=== PATIENT | female | born 1950 | race Caucasian/White ===

== ENCOUNTER 2020-10-27 11:17 | Outpatient (CLI) | payer MEDICARE ==
--- NOTE | 2020-10-27 12:06 | RAD ---
XR Hip Lt 2-3 View INDICATION: Left hip pain COMPARISON: None FINDINGS: Bones: No acute osseous abnormality. Bone mineralization appears within normal limits. Hip joint: Mild degenerative arthrosis of the left hip. SI joints and symphysis pubis: Radiographically normal. Intrapelvic contents: There are mild vascular calcifications seen involving the visualized vasculatur e. Surrounding soft tissues: Radiographically normal. IMPRESSION: 1. No acute osseous abnormality.
--- NOTE | 2020-10-27 12:09 | RAD ---
XR Hip Rt 2-3 View INDICATION: Right hip pain COMPARISON: None FINDINGS: Bones: No acute osseous abnormality. Bone mineralization appears within normal limits. Hip joint: There is mild right hip osteoarthrosis. SI joints and symphysis pubis: Radiographically normal. Intrapelvic contents: Small phlebolith is seen within the lower right hemipelvis. Surrounding soft tissues: Radiographically normal. IMPRESSION: 1. No acute osseous abnormality.
--- NOTE | 2020-10-27 17:49 | RAD ---
LUMBAR SPINE TWO VIEWS: 10/27/20 INDICATIONS: Low back pain. COMPARISON: None. FINDINGS: There is mild disc degenerative disease at all lumbar intervertebral levels most pronounced at L4-5 a nd L5-S1. There is multilevel osteoarthrosis. There are multiple phleboliths within the lower pelvis. Bowel gas pattern is nonobstructed. No acute fracture is evident. IMPRESSION: Mild lumbar spondylosis. No acute osseous abnormality. POS: BH
== END 2020-10-27 11:18 | disposition home or self-care (01) ==
LOC: MADRAD 11:17
PROVIDERS: ATTEND Physician Assistant
DX: Z71.3 Dietary counseling and surveillance (principal); M47.816 Spondylosis without myelopathy or radiculopathy, lumbar region
CPT/HCPCS: 72100